=== PATIENT | female | born 1990 | race Caucasian/White ===

== ENCOUNTER 2019-12-13 18:20 | Inpatient (IN) | payer OTHER ==
[~2019-12-13] VITALS: Ht 160 cm; Wt 95.3 kg
--- NOTE | 2019-12-13 18:30 | NUR ---
Presents with complaints of ruptured membranes on 12/12/19 at 1430. Admitted to labor and delivery. L3. EDC 12/14/19.
[2019-12-13 19:11] LABS: AMNIO PT POSITIVE
[2019-12-13 19:38] LABS: BARBITURATES NEG (NEG); BENZODIAZEPINES NEG (NEG); CANNABINOIDS NEG (NEG); COCAINE NEG (NEG); METHADONE NEG (NEG); OPIATES NEG (NEG); PHENCYCLIDINE NEG (NEG)
[2019-12-13] MEDS: IV RINGERS,LACTATED 1000ML 1,000 ML IV SCH ×2 (19:42→23:39)
[2019-12-13] MEDS ORDERED: PENICILLIN G K 5,000,000 UNIT in IV DEXTROSE 5% 100ML 100 ML IV ONE (19:45)
[2019-12-13] MEDS ORDERED: IBUPROFEN 400 MG TABLET. PO PRN (19:45)
[2019-12-13] MEDS ORDERED: CITRIC ACID/SODIUM CITRATE 30 ML SOLUTION. PO PRN (19:45)
[2019-12-13] MEDS ORDERED: ONDANSETRON PF 4 MG/2 ML VIAL. IVP PRN (19:45)
[2019-12-13] MEDS ORDERED: 0.9 % SODIUM CHLORIDE 10 ML DISP.SYRIN. IV PRN (19:45)
[2019-12-13] MEDS ORDERED: ACETAMINOPHEN 325 MG TABLET. PO PRN (19:45)
[2019-12-13] MEDS ORDERED: BUTORPHANOL 2 MG/ML VIAL. IVP PRN (19:45)
[2019-12-13] MEDS ORDERED: TERBUTALINE 1 MG/ML VIAL. SQ PRN (19:45)
[2019-12-13] MEDS ORDERED: OXYTOCIN 30 UNIT/500 ML PREMIX 500 ML IV PRN ×2 (19:45)
[2019-12-13] MEDS ORDERED: LIDOCAINE 1% PF 30 ML VIAL. INJ PRN (19:45)
[2019-12-13 19:48] VITALS: BP 107/66
[2019-12-13 19:55] LABS: BASO # 0.2 x10^3/uL (0.0-0.2); BASO % 1 % (0-3); EOS % 0 % (0-3); HEMATOCRIT 31.1 % (36.0-47.0); HEMOGLOBIN 10.3 g/dL (12.0-15.5); LYMPH # 2.5 x10^3/uL (1.0-4.8); LYMPH % 19 % (24-48); MEAN CORPUSCULAR HEMOGLOBIN 27 pg (25-35); MEAN CORPUSCULAR HGB CONC 33 g/dL (31-37); MEAN CORPUSCULAR VOLUME 82 fL (79-100); MONO # 0.5 x10^3/uL (0.0-1.1); MONO % 4 % (0-9); NEUT # 9.8 x10^3/uL (1.8-7.7); NEUT % 75 % (31-73); PLATELET COUNT 305 x10^3/uL (140-400); RED BLOOD COUNT 3.78 x10^6/uL (3.50-5.40); RED CELL DISTRIBUTION WIDTH 14.7 % (11.5-14.5); WHITE BLOOD COUNT 12.9 x10^3/uL (4.0-11.0)
[2019-12-13 19:55] LABS: AMPHETAMINE/METHAMPHETAMINE NEG (NEG)
--- NOTE | 2019-12-13 21:44 | RAD ---
Obstetric ultrasound greater than 14 weeks HISTORY: female with no care. FINDINGS: A living third trimester gestational age single intrauterine fetus is present with heart rate of 130 bpm. Estimated sonographic gestational age is 39 weeks 6 days and sonographic date of delivery is December 14, 2019. This is relative to the clinical gestational age of 43 weeks 5 days. position is cephalic. Biparietal diameter 9.54 cm, gestational age 39 weeks 0 days. Head circumference 35.05 cm, gestational age 40 weeks 6 days. Abdominal circumference 36.22 cm, gestational age 40 weeks 1 day. Femur length 7.73 cm, gestational age 39 weeks 4 days. Cephalic index is 76.1 percent. Head/abdominal circumference ratio 0.97. Estimated weight 3933 g. Amniotic fluid index is 13.8 cm. There is limited visualization of anatomy due to the advanced gestational age. There is a probable four-chamber heart although incompletely visualized. Fluid filled stomach documented. Fluid filled bladder documented. Limited visualization of intracranial structures, facial structures, spine, kidneys, umbilical cord and extremities. Placenta is fundal and posterior, the cervix is not documented however no obvious placenta previa is evident. IMPRESSION: Single living intrauterine fetus in cephalic position with estimated sonographic gestational age of 39 weeks 6 days as described above. Electronically signed by: Raf Mares MD (12/13/2019 9:41 PM) [facility]
[2019-12-13] MEDS: fentaNYL PF VIAL 100 MCG/2 ML VIAL IVP PRN (23:34)
[2019-12-14] MEDS ORDERED: PENICILLIN G K 2,500,000 UNIT in IV DEXTROSE 5% 50 ML IV SCH ×2
[2019-12-14] MEDS: fentaNYL PF VIAL 100 MCG/2 ML VIAL IVP PRN ×2 (01:18→04:00)
[2019-12-14] MEDS: IV RINGERS,LACTATED 1000ML 1,000 ML IV SCH ×5 (02:40→18:40)
--- NOTE | 2019-12-14 07:40 | PDOC1 ---
OB - History Hx of Present Care: None Ultrasounds: No ultrasounds Obstetrical Complications: None Medical Complications: None Past Family/Social History * Past Medical, Surgical, Family and Obstetric Histories reviewed from chart. Blood Type: Unknown Rubella: Unknown RPR/VDRL: Unknown GBS Status: Unknown HBsAG: Unknown OB - Chief Complaint & HPI Date of Admission: Date of Admission: December 13, 2019 at 18:20 Chief Complaint/History : 4 Para: 2 EGA: 40 Reason for admission: active labor Admission Nurse Assessment Rev: Yes OB - Admission Exam Physical Exam Vitals: VS - Last 72 Hours, by Label Date Time Temp Pulse Resp B/P (MAP) Pulse Ox O2 Delivery O2 Flow Rate FiO2 12/14/19 04:00 20 Room Air 12/14/19 01:48 18 Room Air 12/14/19 01:18 20 Room Air 12/14/19 00:04 18 Room Air 12/13/19 23:34 20 Room Air 12/13/19 19:48 98.3 70 18 107/66 (80) Room Air 98.3 HEENT: Normal Heart: Regular Rate Lungs: Clear Abdomen: Gravid, Non tender, Soft Extremities: Edema Reflexes: Normal Cervical Dilatation: 3cm Effacement: 75% Station: -3 Membranes: Intact Heart Rate: Normal Accelerations: Accelerations Present Decelerations: No decelerations Contractions on Admission: 6-10 Minutes Apart Intensity: Moderate Text A: 40 wks IUP No PNC Active labor P: Admit labor management. LEE LANDIS Jr, MD December 14, 2019 07:40
--- NOTE | 2019-12-14 07:42 | PDOC ---
VAGINAL DELIVERY DATE DATE: 12/14/19 TIME: 07:41 : 4 Para: 3 EGA: 40 VAGINAL DELIVERY: VTX VACCUM ASSISTED: Yes NUMBER OF PULLS 5 NUMBER OF POP OFFS none MAXIMUM PRESSURE 600 mmgh PLACENTA: Spontaneous 8/9 SEX: Female WEIGHT Weight [ 3835 gm] Nuchal Cord: Yes, Times 1 Amniotic Fluid: Clear PAIN: Natural EPISIOTOMY: No EXTENSION: No EBL 300 ml COMPLICATIONS none CONDITION pt. stable Signs of Intrauterine Infectio: None Shoulder Dystocia: No LEE LANDIS Jr, MD December 14, 2019 07:42
[2019-12-14] MEDS ORDERED: ZOLPIDEM 5 MG TABLET. PO PRN (07:45)
[2019-12-14] MEDS ORDERED: MAG HYDROX/ALUMINUM HYD/SIMETH 30 ML ORAL.SUSP PO PRN (07:45)
[2019-12-14] MEDS ORDERED: PHENYLEPH/MINERAL OIL/PETROLAT RECTAL OINTMENT TUBE. RC PRN (07:45)
[2019-12-14] MEDS ORDERED: oxyCODONE/APAP 5/325 1 TAB TABLET PO PRN (07:45)
[2019-12-14] MEDS ORDERED: OXYTOCIN 30 UNIT/500 ML PREMIX 500 ML IV PRN (07:45)
[2019-12-14] MEDS ORDERED: TDaP (Adacel) per PROTOCOL. MC PRN (07:45)
[2019-12-14] MEDS ORDERED: BENZOCAINE 20% TOPICAL AEROSOL SPRAY 57GM CAN. TP PRN (07:45)
[2019-12-14] MEDS ORDERED: HYDROCORTISONE 1% TOPICAL OINTMENT 30GM TUBE. TP PRN (07:45)
[2019-12-14] MEDS ORDERED: 0.9 % SODIUM CHLORIDE 10 ML DISP.SYRIN. IV PRN (07:45)
[2019-12-14] MEDS ORDERED: diphenhydrAMINE HCL 25 MG CAPSULE PO PRN (07:45)
[2019-12-14] MEDS ORDERED: MAGNESIUM HYDROXIDE 2,400 MG/30 ML ORAL.SUSP. PO PRN (07:45)
[2019-12-14] MEDS ORDERED: SIMETHICONE 80 MG TAB.CHEW PO PRN (07:45)
[2019-12-14] MEDS ORDERED: ACETAMINOPHEN 325 MG TABLET. PO PRN (07:45)
[2019-12-14] MEDS ORDERED: MMR per PROTOCOL. MC PRN (07:45)
[2019-12-14] MEDS: IBUPROFEN 400 MG TABLET. PO PRN ×2 (08:58→18:34)
[2019-12-14] MEDS: MULTIVITAMIN with MINERAL TABLET. PO SCH (09:00)
[2019-12-14 09:55] VITALS: BP 93/43
[2019-12-14 10:55] VITALS: BP 96/45
[2019-12-14 14:44] VITALS: BP 105/50
[2019-12-14 18:25] VITALS: BP 98/46
--- NOTE | 2019-12-14 19:24 | NUR ---
Patient does not want the t-dap.
[2019-12-14 22:38] VITALS: BP 98/40
[2019-12-15 02:12] VITALS: BP 95/48
[2019-12-15] MEDS: DOCUSATE SODIUM 100 MG CAPSULE. PO PRN ×2 (04:46→21:54)
[2019-12-15] MEDS: IBUPROFEN 400 MG TABLET. PO PRN ×3 (04:55→21:54)
[2019-12-15 05:00] VITALS: BP 99/43
[2019-12-15 05:26] LABS: BASO % 0 % (0-3); EOS # 0.1 x10^3/uL (0.0-0.7); EOS % 1 % (0-3); HEMATOCRIT 29.5 % (36.0-47.0); HEMOGLOBIN 9.6 g/dL (12.0-15.5); LYMPH % 21 % (24-48); MEAN CORPUSCULAR HEMOGLOBIN 27 pg (25-35); MEAN CORPUSCULAR HGB CONC 33 g/dL (31-37); MEAN CORPUSCULAR VOLUME 84 fL (79-100); MONO # 0.8 x10^3/uL (0.0-1.1); MONO % 6 % (0-9); NEUT # 10.2 x10^3/uL (1.8-7.7); NEUT % 72 % (31-73); PLATELET COUNT 269 x10^3/uL (140-400); RED BLOOD COUNT 3.53 x10^6/uL (3.50-5.40); RED CELL DISTRIBUTION WIDTH 14.7 % (11.5-14.5); WHITE BLOOD COUNT 14.2 x10^3/uL (4.0-11.0)
--- NOTE | 2019-12-15 07:35 | PDOC ---
OB Progress Note Date of Service 12/15/19 Time of Evaluation 0735 Notes Pt. feeling well. No complaints. Lab Laboratory Tests Test 12/13/19 18:50 12/13/19 19:15 12/13/19 19:35 12/13/19 19:55 Amniotic Fluid Swab Test Positive Urine Opiates Screen Neg (NEG) Urine Methadone Screen Neg (NEG) Urine Barbiturates Neg (NEG) Urine Phencyclidine Screen Neg (NEG) Urine Amphetamine/Methamphetamine Neg (NEG) Urine Benzodiazepines Screen Neg (NEG) Urine Cocaine Screen Neg (NEG) Urine Cannabinoids Screen Neg (NEG) Urine Ethyl Alcohol Neg (NEG) White Blood Count 12.9 x10^3/uL (4.0-11.0) Red Blood Count 3.78 x10^6/uL (3.50-5.40) Hemoglobin 10.3 g/dL (12.0-15.5) Hematocrit 31.1 % (36.0-47.0) Mean Corpuscular Volume 82 fL (79-100) Mean Corpuscular Hemoglobin 27 pg (25-35) Mean Corpuscular Hemoglobin Concent 33 g/dL (31-37) Red Cell Distribution Width 14.7 % (11.5-14.5) Platelet Count 305 x10^3/uL (140-400) Neutrophils (%) (Auto) 75 % (31-73) Lymphocytes (%) (Auto) 19 % (24-48) Monocytes (%) (Auto) 4 % (0-9) Eosinophils (%) (Auto) 0 % (0-3) Basophils (%) (Auto) 1 % (0-3) Neutrophils # (Auto) 9.8 x10^3/uL (1.8-7.7) Lymphocytes # (Auto) 2.5 x10^3/uL (1.0-4.8) Monocytes # (Auto) 0.5 x10^3/uL (0.0-1.1) Eosinophils # (Auto) 0.0 x10^3/uL (0.0-0.7) Basophils # (Auto) 0.2 x10^3/uL (0.0-0.2) Treponema pallidum Antibody Nonreactive (Nonreactive) Hepatitis B Surface Antigen Nonreactive (Nonreactive) HIV (1&2) Antibody Screen Nonreactive (Nonreactive) Coronavirus (COVID-19)(PCR) See separate report Test 12/15/19 04:37 White Blood Count 14.2 x10^3/uL (4.0-11.0) Red Blood Count 3.53 x10^6/uL (3.50-5.40) Hemoglobin 9.6 g/dL (12.0-15.5) Hematocrit 29.5 % (36.0-47.0) Mean Corpuscular Volume 84 fL (79-100) Mean Corpuscular Hemoglobin 27 pg (25-35) Mean Corpuscular Hemoglobin Concent 33 g/dL (31-37) Red Cell Distribution Width 14.7 % (11.5-14.5) Platelet Count 269 x10^3/uL (140-400) Neutrophils (%) (Auto) 72 % (31-73) Lymphocytes (%) (Auto) 21 % (24-48) Monocytes (%) (Auto) 6 % (0-9) Eosinophils (%) (Auto) 1 % (0-3) Basophils (%) (Auto) 0 % (0-3) Neutrophils # (Auto) 10.2 x10^3/uL (1.8-7.7) Lymphocytes # (Auto) 3.0 x10^3/uL (1.0-4.8) Monocytes # (Auto) 0.8 x10^3/uL (0.0-1.1) Eosinophils # (Auto) 0.1 x10^3/uL (0.0-0.7) Basophils # (Auto) 0.0 x10^3/uL (0.0-0.2) Laboratory Tests Test 12/15/19 04:37 White Blood Count 14.2 x10^3/uL (4.0-11.0) Red Blood Count 3.53 x10^6/uL (3.50-5.40) Hemoglobin 9.6 g/dL (12.0-15.5) Hematocrit 29.5 % (36.0-47.0) Mean Corpuscular Volume 84 fL (79-100) Mean Corpuscular Hemoglobin 27 pg (25-35) Mean Corpuscular Hemoglobin Concent 33 g/dL (31-37) Red Cell Distribution Width 14.7 % (11.5-14.5) Platelet Count 269 x10^3/uL (140-400) Neutrophils (%) (Auto) 72 % (31-73) Lymphocytes (%) (Auto) 21 % (24-48) Monocytes (%) (Auto) 6 % (0-9) Eosinophils (%) (Auto) 1 % (0-3) Basophils (%) (Auto) 0 % (0-3) Neutrophils # (Auto) 10.2 x10^3/uL (1.8-7.7) Lymphocytes # (Auto) 3.0 x10^3/uL (1.0-4.8) Monocytes # (Auto) 0.8 x10^3/uL (0.0-1.1) Eosinophils # (Auto) 0.1 x10^3/uL (0.0-0.7) Basophils # (Auto) 0.0 x10^3/uL (0.0-0.2) Medications Current Medications Ringer's Solution 1,000 ml @ 125 mls/hr Q8H IV Last administered on 12/13/19at 19:42; Start 12/13/19 at 18:40; Stop 12/14/19 at 19:30; Status DC Sodium Chloride (Normal Saline Flush) 3 ml QSHIFT PRN IV AFTER MEDS AND BLOOD DRAWS; Start 12/13/19 at 19:45 Ringer's Solution 1,000 ml @ 125 mls/hr Q8H IV Last administered on 12/13/19at 23:39; Start 12/13/19 at 19:39; Stop 12/14/19 at 19:30; Status DC Butorphanol Tartrate (Stadol) 2 mg PRN Q1HR PRN IVP Severe labor pain; Start 12/13/19 at 19:45 Fentanyl Citrate (Fentanyl 2ml Vial) 100 mcg PRN Q30MIN PRN IVP Severe pain Last administered on 12/14/19at 04:00; Start 12/13/19 at 19:45 Acetaminophen (Tylenol) 1,000 mg PRN Q6HRS PRN PO MILD PAIN / TEMP > 100.3'F; Start 12/13/19 at 19:45 Ondansetron HCl (Zofran) 4 mg PRN Q4HRS PRN IVP NAUSEA/VOMITING; Start 12/13/19 at 19:45 Citric Acid/ Sodium Citrate (Bicitra) 30 ml 1X PRN PRN PO DYSPEPSIA; Start 12/13/19 at 19:45; Stop 12/14/19 at 19:44; Status DC Terbutaline Sulfate (Brethine) 0.25 mg 1X PRN PRN SQ SEE COMMENTS; Start 12/13/19 at 19:45; Stop 12/14/19 at 19:44; Status DC Lidocaine HCl (Xylocaine 1% Pf 30ml Vial) 30 ml 1X PRN PRN INJ SEE COMMENTS; Start 12/13/19 at 19:45; Stop 12/15/19 at 19:44 Oxytocin/Sodium Chloride 500 ml @ 0 mls/hr CONT PRN IV SEE I/O RECORD Last administered on 12/13/19at 21:39; Start 12/13/19 at 19:45 Oxytocin/Sodium Chloride 500 ml @ 0 mls/hr CONT PRN PRN IV Post delivery bleeding; Start 12/13/19 at 19:45 Ibuprofen (Motrin) 800 mg PRN Q6HRS PRN PO INFLAMMATION; Start 12/13/19 at 19:45; Stop 12/14/19 at 07:49; Status DC Penicillin G Potassium 3990507 unit/Dextrose 100 ml @ 100 mls/hr 1X ONCE IV Last administered on 12/13/19at 20:11; Start 12/13/19 at 19:45; Stop 12/13/19 at 20:44; Status DC Penicillin G Potassium [id number] unit/Dextrose 50 ml @ 100 mls/hr Q4H IV Last administered on 12/14/19at 03:55; Start 12/14/19 at 00:00; Stop 12/14/19 at 15:55; Status DC Sodium Chloride (Normal Saline Flush) 10 ml QSHIFT PRN IV AFTER MEDS AND BLOOD DRAWS; Start 12/14/19 at 07:45 Oxytocin/Sodium Chloride 500 ml @ 62.5 mls/hr CONT PRN IV SEE I/O RECORD; Start 12/14/19 at 07:45; Stop 12/14/19 at 15:44; Status DC Acetaminophen (Tylenol) 650 mg PRN Q6HRS PRN PO MILD PAIN / TEMP > 100.3'F; Start 12/14/19 at 07:45 Ibuprofen (Motrin) 800 mg PRN Q8HRS PRN PO INFLAMMATION/PAIN PREVENTION Last administered on 12/15/19at 04:55; Start 12/14/19 at 07:45 Docusate Sodium (Colace) 100 mg PRN BID PRN PO HARD STOOL Last administered on 12/15/19at 04:46; Start 12/14/19 at 07:45 Magnesium Hydroxide (Milk Of Magnesia) 2,400 mg PRN DAILY PRN PO CONSTIPATION; Start 12/14/19 at 07:45 Al Hydroxide/Mg Hydroxide (Mylanta Plus Xs) 30 ml PRN Q4HRS PRN PO HEARTBURN / GAS; Start 12/14/19 at 07:45 Simethicone (Gas-X) 80 mg PRN AFTMEALHC PRN PO GAS / BLOATING; Start 12/14/19 at 07:45 Diphenhydramine HCl (Benadryl) 25 mg PRN Q6HRS PRN PO ITCHING; Start 12/14/19 at 07:45 Benzocaine (Americaine) 1 spray PRN QID PRN TP TOPICAL PAIN; Start 12/14/19 at 07:45 Phenyleph/Shark Oil/Min Oil/Petrol (Preparation H) 1 vinny PRN QID PRN RC RECTAL PAIN; Start 12/14/19 at 07:45 Hydrocortisone (Cortaid) 1 vinny PRN QID PRN TP PERINEAL PAIN; Start 12/14/19 at 07:45 Ferrous Sulfate (Feosol) 325 mg BIDWMEALS PO ; Start 12/15/19 at 08:00 Zolpidem Tartrate (Ambien) 5 mg PRN QHS PRN PO INSOMNIA, MAY REPEAT X1; Start 12/14/19 at 07:45 Info (Do NOT chart on this placeholder) 1 ea 1X PRN PRN MC SEE COMMENTS; Start 12/14/19 at 07:45 Info (Do NOT chart on this placeholder) 1 ea 1X PRN PRN MC SEE COMMENTS; Start 12/14/19 at 07:45 Oxycodone/ Acetaminophen (Percocet 5/325) 2 tab PRN Q4HRS PRN PO MODERATE PAIN, SEVERE PAIN; Start 12/14/19 at 07:45 Multivitamins (Thera M Plus) 1 tab DAILY PO ; Start 12/14/19 at 09:00 Exam Abd: soft, non tender, fundus firm Assessment PPD#1 s/p VAVD Plan of Care: Continue current Tx, Mgmt LEE LANDIS Jr, MD December 15, 2019 07:35
[2019-12-15] MEDS: FERROUS SULFATE 325 MG TABLET. PO SCH ×2 (08:16→17:59)
[2019-12-15] MEDS: MULTIVITAMIN with MINERAL TABLET. PO SCH (08:16)
[2019-12-15 13:30] VITALS: BP 87/47
[2019-12-15 18:31] VITALS: BP 86/50
[2019-12-15 20:45] VITALS: BP 110/53
[2019-12-16 05:38] VITALS: BP 91/61
[2019-12-16] MEDS: IBUPROFEN 400 MG TABLET. PO PRN (07:48)
[2019-12-16] MEDS: FERROUS SULFATE 325 MG TABLET. PO SCH (08:23)
[2019-12-16] MEDS: MULTIVITAMIN with MINERAL TABLET. PO SCH (08:23)
[2019-12-16] MEDS: DOCUSATE SODIUM 100 MG CAPSULE. PO PRN (08:23)
--- NOTE | 2019-12-16 12:28 | NUR ---
SS following up with referral regarding no care. SS discussed with RN and reviewed pt chart. Mother and drug screen negative. SS met with mother to discuss circumstances surrounding referral. Mother reported that she just got a letter from Medicaid this month stating that she has active Medicaid coverage. Mother reported that she has been off work for two months now due to pandemic. Mother reported that she is a [employer] and is still technically employed but has been off the schedule for two months. Mother reported that she has applied for food stamps and WIC. Mother reported that she has joint custody of other children and other children are insured by there father and are seen for medical care at [facility]. Mother reported that she has full custody of and has scheduled well child visit for infant at [facility] on Saturday. Mother reported that she has all needed supplies for infant to include carseat. Mother reported that she has good transportation. Mother reported that she could not afford the cost of care until Medicaid was active. SS discussed with RN. This referral did not meet criteria for DCF hotline.
[2019-12-16 12:32] VITALS: BP 112/70
--- NOTE | 2019-12-16 13:50 | PDOC3 ---
OB DISCHARGE SUMMARY DATE OF ADMISSION: 12/14/19 DATE OF DISCHARGE: 12/16/19 REASON FOR ADMISSION: Onset of labor INTRAPARTUM PROCEDURES: Spontanous Vag Deliv DISCHARGE DIAGNOSIS: Term Delivered DISCHARGE INFORMATION: Activity (ad edita), Diet (regular), Instructions (pelvic rest x 6 wks) HOSPITAL COURSE TErm gestation delivered vaginally without complications. LEE LANDIS Jr, MD December 16, 2019 13:50
[2019-12-16] MEDS ORDERED: IBUP-1027 PO (13:52)
--- NOTE | 2019-12-16 13:53 | DISCH ---
DISCHARGE INSTRUCTIONS Condition on Discharge Condition on Discharge: Stable Activity After Discharge Activity Instructions for Disc: Activity as tolerated Lifting Instructions after Dis: No heavy lifting Driving Instructions after Dis: Do not drive today Diet after Discharge Diet after Discharge: Regular Contacting the [facility] after DC Call your doctor for: Concerns you may have Follow-Up Follow up with: Dr. August in 6 wks LEE AUGUST Jr, MD December 16, 2019 13:53
[2019-12-16 14:05] VITALS: BP 112/67
--- NOTE | 2019-12-16 15:34 | NUR ---
Discharge instructions given to pt, pt verbalized understanding denied any questions. Pt discharged home.
== END 2019-12-16 14:48 | disposition home or self-care (01) | DRG 807 ==
LOC: 3 SO LND 18:20 → OBSVTOIN 19:43 → 3 NORTH 12-14 11:40
PROVIDERS: ADMIT Obstetrics & Gynecology; ATTEND Obstetrics & Gynecology
PROC: 10D07Z6 Extraction of Products of Conception, Vacuum, Via Natural or Artificial Opening (ICD-10-PCS; principal; 2019-12-14)
DX: O69.81X0 Labor and delivery complicated by cord around neck, without compression, not applicable or unspecified (principal); Z37.0 Single live birth; Z3A.40 40 weeks gestation of pregnancy; Z20.828 Contact with and (suspected) exposure to other viral communicable diseases
CPT/HCPCS: 36415; 76805; 80307; 84112; 85025; 86592; 86703; 86762; 86850; 86900; 86901; 87340; G0378; G0379; J2540; J2590; J3010; J7060; J7120; U0003-CS